=== PATIENT | female | born 1980 | race Caucasian/White ===

== ENCOUNTER 2020-02-29 11:59 | Emergency (ER) | payer SELFPAY ==
[2020-02-29] MEDS ORDERED: LORazepam 2 MG/ML SDV IVPUSH ONE ×2 (12:11→13:04)
[2020-02-29] MEDS ORDERED: Sodium Chloride 0.9% 1,000 ML IV SCH ×2 (12:15→12:45)
--- NOTE | 2020-02-29 14:56 | EDM.PDOCBH ---
ED HPI GENERAL MEDICAL PROBLEM - General Chief Complaint: Drug or Alcohol Abuse Stated Complaint: ANXIOYS FROM [facility] Time Seen by Provider: 02/29/20 12:20 Source of Information: Reports: Patient History Limitations: Reports: No Limitations - History of Present Illness INITIAL COMMENTS - FREE TEXT/NARRATIVE: pt arrived from [facility]. She was arrested last nite and she started getting very shakey and she was brought in for fluids and meds. Arianna Ascencio was full at the time. Onset: Today, Sudden Duration: Hour(s):, Other (pt admits to drinking heavily recently and feels like she is withdrawing. ) Location: Reports: Generalized Associated Symptoms: Reports: Chest Pain, Shortness of Breath, Other (pt was very tense on arrival. ) Chest Pain Score (Numeric/FACES): 3 - Related Data Allergies Allergy/AdvReac Type Severity Reaction Status Date / Time metaxalone [From Skelaxin] Allergy Swelling Verified 02/29/20 12:35 Home Meds: Home Meds NK [No Known Home Meds] 02/29/20 [History] Past Medical History HEENT History: Reports: Impaired Vision Cardiovascular History: Reports: Heart Murmur, Prior Cardiac Arrest, Other (See Below) Other Cardiovascular History: OD with cardiac arrest. 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" Psychiatric History: Reports: Addiction, Anxiety, Depression, Panic Attack, PTS D, Suicide Attempt Endocrine/Metabolic History: Reports: Other (See Below) Other Endocrine/Metabolic History: hypoglycemic - Infectious Disease History Infectious Disease History: Reports: Hepatitis C, MRSA - Past Surgical History Cardiovascular Surgical History: Reports: Other (See Below) Other Cardiovascular Surgeries/Procedures: angiogram GI Surgical History: Reports: Appendectomy, Cholecystectomy, Hernia, Abdominal, Hernia, Inguinal, Hernia Repair/Other, Other (See Below) Other GI Surgeries/Procedures: "7 laparoscopic surgeries". Female Surgical History: Reports: Hysterectomy Social & Family History - Tobacco Use Smoking Status *Q: Light Tobacco Smoker Years of Tobacco use: 28 Packs/Tins Daily: 0.5 - Caffeine Use Caffeine Use: Reports: None - Alcohol Use Days Per Week of Alcohol Use: 7 Number of Drinks Per Day: 3 Total Drinks Per Week: 21 Date of Last Drink: 02/28/20 Time of Last Drink: 15:00 - Recreational Drug Use Recreational Drug Use: No ED ROS GENERAL - Review of Systems Review Of Systems: See Below Constitutional: Reports: Other ( shakey and withdrawing. ) HEENT: Reports: No Symptoms Respiratory: Reports: No Symptoms Cardiovascular: Reports: No Symptoms Endocrine: Reports: No Symptoms GI/Abdominal: Reports: No Symptoms : Reports: No Symptoms Musculoskeletal: Reports: Other (pt was very twense ans she was hyperventilating. ) Skin: Reports: No Symptoms Neurological: Reports: Other ( shakey and hyperventilating. ) Psychiatric: Reports: Agitation Hematologic/Lymphatic: Reports: No Symptoms ED EXAM, BEHAVIORAL HEALTH - Physical Exam Exam: See Below Text/Narrative:: pt arrived very shakey and hypervemtiolating. She did admit to some upper left sided chest pain. Exam Limited By: No Limitations General Appearance: Alert, Anxious, Mild Distress, Other (pt had very little discomfort. ) Ears: Normal TMs Nose: Normal Inspection Throat/Mouth: Normal Inspection Head: Atraumatic Neck: Normal Inspection Respiratory/Chest: Other (pt was hyperventilating and we did have her breath into a brow paper bag. ) Cardiovascular: Regular Rate, Rhythm (Female) Exam: Deferred Rectal (Female) Exam: Deferred Back Exam: Normal Inspection Extremities: Normal Inspection COURSE, BEHAVIORAL HEALTH COMP - Course Vital Signs: Last Vital Signs Temp 35.2 C L 02/29/20 12:33 Pulse 66 02/29/20 16:01 Resp 16 02/29/20 16:01 BP 166/79 H 02/29/20 16:01 Pulse Ox 99 02/29/20 15:10 Orders, Labs, Meds: Laboratory Tests 02/29/20 02/29/20 02/29/20 Range/Units 12:25 12:25 12:25 WBC 5.5 (4.5-11.0) K/uL RBC 3.99 (3.30-5.50) M/uL Hgb 13.4 (12.0-15.0) g/dL Hct 40.0 (36.0-48.0) % MCV 100 H (80-98) fL MCH 34 H (27-31) pg MCHC 34 (32-36) % Plt Count 295 (150-400) K/uL Neut % (Auto) 73 H (36-66) % Lymph % (Auto) 17 L (24-44) % [place] % (Auto) 9 H (2-6) % Eos % (Auto) 0 L (2-4) % Baso % (Auto) 1 (0-1) % Sodium 137 L (140-148) mmol/L Potassium 4.0 (3.6-5.2) mmol/L Chloride 99 L (100-108) mmol/L Carbon Dioxide 25 (21-32) mmol/L Anion Gap 17.0 H (5.0-14.0) mmol/L BUN 7 (7-18) mg/dL Creatinine 0.9 (0.6-1.0) mg/dL Est Cr Clr Drug Dosing 70.10 mL/min Estimated GFR (MDRD) > 60 (>60) Glucose 118 H (74-106) mg/dL Calcium 9.3 (8.5-10.1) mg/dL Total Bilirubin 0.8 (0.2-1.0) mg/dL AST 200 H (15-37) U/L ALT 119 H (12-78) U/L Alkaline Phosphatase 91 (46-116) U/L Troponin I < 0.017 (0.000-0.056) ng/mL Total Protein 8.4 H (6.4-8.2) g/dL Albumin 4.0 (3.4-5.0) g/dL Globulin 4.4 H (2.3-3.5) g/dL Albumin/Globulin Ratio 0.9 L (1.2-2.2) Urine Color (YELLOW) Urine Appearance (CLEAR) Urine pH (5.0-8.0) Ur Specific [place] (1.008-1.030) Urine Protein (NEGATIVE) mg/dL Urine Glucose (UA) (NEGATIVE) mg/dL Urine Ketones (NEGATIVE) mg/dL Urine Occult Blood (NEGATIVE) Urine Nitrite (NEGATIVE) Urine Bilirubin (NEGATIVE) Urine Urobilinogen (0.2-1.0) EU/dL Ur Leukocyte Esterase (NEGATIVE) Urine RBC (0-5) Urine WBC (0-5) Ur Epithelial Cells Amorphous Sediment Urine Bacteria Urine Mucus Urine Opiates Screen (NEGATIVE) Ur Oxycodone Screen (NEGATIVE) Urine Methadone Screen (NEGATIVE) Ur Propoxyphene Screen (NEGATIVE) Ur Barbiturates Screen (NEGATIVE) Ur Tricyclics Screen (NEGATIVE) Ur Phencyclidine Scrn (NEGATIVE) Ur Amphetamine Screen (NEGATIVE) U Methamphetamines Scrn (NEGATIVE) Urine MDMA Screen (NEGATIVE) U Benzodiazepines Scrn (NEGATIVE) U Cocaine Metab Screen (NEGATIVE) U Marijuana (THC) Screen (NEGATIVE) Ethyl Alcohol mg/dL 02/29/20 02/29/20 02/29/20 Range/Units 12:25 14:56 14:56 WBC (4.5-11.0) K/uL RBC (3.30-5.50) M/uL Hgb (12.0-15.0) g/dL Hct (36.0-48.0) % MCV (80-98) fL MCH (27-31) pg MCHC (32-36) % Plt Count (150-400) K/uL Neut % (Auto) (36-66) % Lymph % (Auto) (24-44) % [place] % (Auto) (2-6) % Eos % (Auto) (2-4) % Baso % (Auto) (0-1) % Sodium (140-148) mmol/L Potassium (3.6-5.2) mmol/L Chloride (100-108) mmol/L Carbon Dioxide (21-32) mmol/L Anion Gap (5.0-14.0) mmol/L BUN (7-18) mg/dL Creatinine (0.6-1.0) mg/dL Est Cr Clr Drug Dosing mL/min Estimated GFR (MDRD) (>60) Glucose (74-106) mg/dL Calcium (8.5-10.1) mg/dL Total Bilirubin (0.2-1.0) mg/dL AST (15-37) U/L ALT (12-78) U/L Alkaline Phosphatase (46-116) U/L Troponin I (0.000-0.056) ng/mL Total Protein (6.4-8.2) g/dL Albumin (3.4-5.0) g/dL Globulin (2.3-3.5) g/dL Albumin/Globulin Ratio (1.2-2.2) Urine Color Yellow (YELLOW) Urine Appearance Clear (CLEAR) Urine pH 8.5 H (5.0-8.0) Ur Specific [place] 1.025 (1.008-1.030) Urine Protein 30 H (NEGATIVE) mg/dL Urine Glucose (UA) Negative (NEGATIVE) mg/dL Urine Ketones 40 H (NEGATIVE) mg/dL Urine Occult Blood Negative (NEGATIVE) Urine Nitrite Negative (NEGATIVE) Urine Bilirubin Negative (NEGATIVE) Urine Urobilinogen 1.0 (0.2-1.0) EU/dL Ur Leukocyte Esterase Trace H (NEGATIVE) Urine RBC 0-5 (0-5) Urine WBC 10-20 H (0-5) Ur Epithelial Cells Few Amorphous Sediment Not seen Urine Bacteria Moderate Urine Mucus Not seen Urine Opiates Screen Negative (NEGATIVE) Ur Oxycodone Screen Negative (NEGATIVE) Urine Methadone Screen Negative (NEGATIVE) Ur Propoxyphene Screen Negative (NEGATIVE) Ur Barbiturates Screen Negative (NEGATIVE) Ur Tricyclics Screen Negative (NEGATIVE) Ur Phencyclidine Scrn Negative (NEGATIVE) Ur Amphetamine Screen Negative (NEGATIVE) U Methamphetamines Scrn Negative (NEGATIVE) Urine MDMA Screen Negative (NEGATIVE) U Benzodiazepines Scrn Presumptive positive H (NEGATIVE) U Cocaine Metab Screen Negative (NEGATIVE) U Marijuana (THC) Screen Negative (NEGATIVE) Ethyl Alcohol < 3 mg/dL Medications Discontinued Medications Generic Name Dose Route Start Last Admin Trade Name Freq PRN Reason Stop Dose Admin Ciprofloxacin 500 mg 02/29/20 15:19 02/29/20 15:24 Ciprofloxacin Hcl PO 02/29/20 15:20 500 mg ONETIME ONE Administration Sodium Chloride 1,000 mls @ 999 mls/hr 02/29/20 12:15 02/29/20 12:38 Normal Saline IV 999 mls/hr ASDIRECTED SIDDHARTHA Administration Sodium Chloride 1,000 mls @ 999 mls/hr 02/29/20 12:45 02/29/20 13:56 Normal Saline IV 999 mls/hr ASDIRECTED SIDDHARTHA Administration Lorazepam 1 mg 02/29/20 12:11 02/29/20 12:37 Ativan IVPUSH 02/29/20 12:12 1 mg ONETIME ONE Administration Lorazepam 1 mg 02/29/20 13:04 02/29/20 15:21 Ativan IVPUSH 02/29/20 13:05 1 mg ONETIME ONE Administration Lorazepam Confirm 02/29/20 15:19 Ativan Administered 02/29/20 15:20 Dose 2 mg .ROUTE .STK-MED ONE Medical Clearance: 02/29/20 14:58 pt was given ativan 2 mg iv and she did calm down and was able to relax. While she was here a bed opened in [place]. She has elevated liver enzymes. Her lelectrolytes were good. Her trop looked good. 02/29/20 15:18 urine is neg for drugs. She does appear to have a UTI 03/04/20 18:55 [facility] DID ASK ME TO SIGN A 72 HOUR HOLD. Departure - Departure Time of Disposition: 16:40 Disposition: DC/Tfer to [facility]Unit [facility] Condition: Fair Clinical Impression: ETOH abuse, Dehydration, UTI (urinary tract infection) - Discharge Information Instructions: Alcohol Use Disorder, Dehydration, Adult, [id number], Urinary Tract Infection, Adult Referrals: PCP,None [Primary Care Provider] - Forms: ED Department Discharge Care Plan Goals: transfer to [place]. pt is on a 72 hour hold. cipro 500mg bid for 3 days. Sepsis Event Note (ED) - Evaluation Sepsis Screening Result: No Definite Risk
[2020-02-29] MEDS ORDERED: LORazepam 2 MG/ML SDV ONE (15:19)
[2020-02-29] MEDS ORDERED: Ciprofloxacin 500 MG Tab PO ONE (15:19)
== END 2020-02-29 16:36 ==
LOC: JP.ED 11:59
DX: R07.9 Chest pain, unspecified (principal); R06.4 Hyperventilation; E86.0 Dehydration; N39.0 Urinary tract infection, site not specified; F10.10 Alcohol abuse, uncomplicated; R74.8 Abnormal levels of other serum enzymes; J44.9 Chronic obstructive pulmonary disease, unspecified; F17.200 Nicotine dependence, unspecified, uncomplicated; Z88.8 Allergy status to other drugs, medicaments and biological substances; Z90.49 Acquired absence of other specified parts of digestive tract; Z90.710 Acquired absence of both cervix and uterus
CPT/HCPCS: 36415; 80053; 80305; 80307; 81001; 84484; 85025; 87086; 87088; 87186; 93005; 96361; 96374; 96376; 99284; A9270; J2060; J7030; 93010